=== PATIENT | female | born 1955 | race American Indian/Alaskan Native ===

== ENCOUNTER 2020-10-04 08:34 | Observation (INO) | payer MEDICARE ==
[2020-10-04] MEDS ORDERED: ASPIRIN EC 325 MG TAB PO ONE (09:16)
[2020-10-04] MEDS ORDERED: ASPIRIN 325 MG TAB ONE (09:23)
[2020-10-04 09:53] LABS: Hematocrit 35.3 % (30.3-42.9); Hemoglobin 11.3 gm/dl (10.1-14.3); Mean Corpuscular HGB Conc 32 % (30-34); Mean Corpuscular Volume 89 fl (79-97); Platelet Count 218 K/mm3 (140-440); Red Blood Count 3.96 M/mm3 (3.65-5.03); Red Cell Distribution Width 16.2 % (13.2-15.2)
[2020-10-04] MEDS ORDERED: SODIUM CHLORIDE 0.9% 500 ML 500 ML IV SCH (10:00)
[2020-10-04 10:03] LABS: Basophils % (Auto) 0.7 % (0.0-1.8); Eosinophils # (Auto) 0.3 K/mm3 (0.0-0.4); Eosinophils % (Auto) 5.7 % (0.0-4.3); Lymphocytes # (Auto) 1.8 K/mm3 (1.2-5.4); Lymphocytes % (Auto) 29.6 % (13.4-35.0); Monocytes # (Auto) 0.5 K/mm3 (0.0-0.8); Monocytes % (Auto) 8.9 % (0.0-7.3)
[2020-10-04 10:04] LABS: INR 1.01 (0.87-1.13)
[2020-10-04 10:08] LABS: Blood Urea Nitrogen 32 mg/dL (7-17); Calcium 9.1 mg/dL (8.4-10.2); Hemolysis Index 325
[2020-10-04 10:19] LABS: BUN/Creatinine Ratio 4
[2020-10-04] MEDS ORDERED: HEPARIN/NS 5000 UNIT/500ML 1,000 ML IR ONE (11:40)
[2020-10-04] MEDS ORDERED: LIDOCAINE (2%) 20 MG/1 ML VIAL 20 ML MDV INFILTRATI ONE (11:41)
[2020-10-04] MEDS ORDERED: MIDAZOLAM 2 MG/2 ML INJ ONE (11:41)
[2020-10-04] MEDS ORDERED: NITROGLYCERIN SYRINGE 3 ML ONE (11:41)
[2020-10-04] MEDS ORDERED: diphenhydrAMINE 50 MG/ML VIAL ONE (12:24)
[2020-10-04] MEDS ORDERED: HYDROCORTISONE SOD SUCC 100 MG/2 ML VIAL ONE (12:24)
[2020-10-04] MEDS: fentaNYL 100 MCG/2 ML INJ ONE ×2 (12:38→12:58)
[2020-10-04] MEDS: HEPARIN 10,000 UNITS/10 ML VIAL ONE ×2 (12:50→12:59)
[2020-10-04] MEDS ORDERED: MORPHINE 10 MG/1 ML INJ ONE (12:53)
[2020-10-04] MEDS ORDERED: CLOPIDOGREL 300 MG TAB ONE (13:10)
[2020-10-04] MEDS ORDERED: ALUM-MAG HYDROXIDE-SIMETHICONE 200-200-20MG/5ML ORAL LIQD 30 ML ONE (13:10)
--- NOTE | 2020-10-04 13:31 | Cardiac Catherization Report ---
CARDIAC CATHETERIZATION AND CORONARY ANGIOPLASTY REPORT REASON FOR PROCEDURE: The patient is a 65-year-old woman with end-stage renal disease, on hemodialysis, who is undergoing transplant evaluation. She was referred for cardiac catheterization for preoperative assessment. Previous cardiac catheterization most recently in 2013 demonstrated multivessel, nonobstructive disease at the time. PROCEDURES: 1. Left heart catheterization. 2. Selective left and right coronary angiography. 3. Left ventricular angiography. 4. Coronary angioplasty and stenting of the circumflex artery. 5. Sedation time, start 1238, end 1304. I was present for the entire procedure and supervised the moderate sedation protocol. DESCRIPTION OF PROCEDURE: The patient was prepped and draped in a sterile fashion after informed consent. The right femoral artery was entered using Seldinger technique followed by placement of a 6-Hebrew sheath. Selective left and right coronary angiography was performed using a #4 left Samm and a #4 right Samm. The right Samm was used for left ventricular angiography. The angiograms were reviewed. CORONARY ANGIOGRAPHY: The left main coronary artery was free of significant disease. There was heavy calcification of the left anterior descending artery in its proximal to mid segment. This was associated with mild diffuse atherosclerosis. Otherwise, no significant obstructive lesions were noted in the LAD or diagonal branches. The circumflex artery contained mild luminal irregularities in its proximal AV groove segment. After a large mid obtuse marginal branch, the circumflex then terminated in a medium sized, bifurcating terminal obtuse marginal. There was a long 90% stenosis of this terminal obtuse marginal. The right coronary artery was dominant. This vessel contained a long, 75-80% stenosis of its mid segment. Left ventricular systolic function was well preserved with ejection fraction estimated at 65%. CORONARY ANGIOPLASTY: After review of the angiograms, we proceeded with ad hoc coronary intervention to the circumflex vessel. We selected an XB 3.0 guiding catheter and advanced to the left coronary ostium. A 0.014 inch Cork Tipper 50 guidewire was then directed into the circumflex, across the lesional segment in the distal obtuse marginal. We then used a 2.5 mm balloon catheter and predilated the stenosis. Following this, a 2.5 x 15 mm drug-eluting stent was then deployed, and the stent inflated to optimal pressures. Following stenting, there was an excellent angiographic result, 0 residual stenosis and MARS 3 flow was maintained down the vessel. The catheters and the wires were removed, sheath removed, and hemostasis achieved using an Angio-Seal device. The patient was returned to the post-procedure unit in stable condition. There were no complications. CONCLUSION: 1. Multivessel coronary artery disease. 2. Severe disease of the distal circumflex and mid right coronary arteries. 3. Normal left ventricular systolic function, ejection fraction 65%. 4. Successful ad hoc angioplasty and stenting of the circumflex artery, with successful deployment of a 2.5 x 15 mm drug-eluting stent. The patient's right coronary artery lesion will be scheduled for staged, second vessel intervention. JOB# [id number] CA/NTS
[2020-10-04] MEDS ORDERED: HYDROcodone/ACETAMINOPHEN 5-325 MG TAB PO PRN (13:33)
[2020-10-04] MEDS ORDERED: ZOLPIDEM 5 MG TAB PO PRN (13:33)
--- NOTE | 2020-10-04 13:33 | Event Note ---
Date: 10/04/20 Outpatient cardiac catheterization completed via the right femoral approach, we found a 90% stenosis of the distal circumflex, and another, 80% stenosis of the mid right coronary artery. We performed successful ad hoc angioplasty and stenting of the circumflex with deployment of a 2.5 x 15 mm drug-eluting stent, excellent angiographic result. The patient will be observed overnight post intervention, anticipate discharge tomorrow after hemodialysis. We will start optimal guideline directed medical therapy including dual oral antiplatelet therapy.
[2020-10-04] MEDS ORDERED: ONDANSETRON 4 MG/2 ML INJ IV PRN (14:00)
[2020-10-04] MEDS ORDERED: ACETAMINOPHEN 325 MG TAB PO PRN (14:00)
[2020-10-04] MEDS: METOPROLOL TARTRATE 50 MG TAB PO SCH (16:40)
[2020-10-04] MEDS ORDERED: NON-FORMULARY EACH (Famotidine [Pepcid] 40 MG Tablet) PO SCH (22:00)
[2020-10-04] MEDS ORDERED: FAMOTIDINE 20 MG TAB PO SCH (22:17)
[2020-10-05] MEDS: METOPROLOL TARTRATE 50 MG TAB PO SCH ×2 (06:31→09:13)
[2020-10-05 06:36] LABS: Basophils % (Auto) 0.4 % (0.0-1.8); Eosinophils # (Auto) 0.1 K/mm3 (0.0-0.4); Eosinophils % (Auto) 1.9 % (0.0-4.3); Lymphocytes # (Auto) 1.7 K/mm3 (1.2-5.4); Lymphocytes % (Auto) 29.3 % (13.4-35.0); Mean Corpuscular HGB Conc 32 % (30-34); Mean Corpuscular Volume 88 fl (79-97); Monocytes # (Auto) 0.6 K/mm3 (0.0-0.8); Monocytes % (Auto) 9.8 % (0.0-7.3); Platelet Count 187 K/mm3 (140-440); Red Blood Count 3.51 M/mm3 (3.65-5.03); Red Cell Distribution Width 16.2 % (13.2-15.2)
[2020-10-05] MEDS: FAMOTIDINE 20 MG TAB PO SCH ×2 (07:05→09:12)
[2020-10-05 07:23] LABS: Calcium 8.3 mg/dL (8.4-10.2)
--- NOTE | 2020-10-05 08:18 | XRay Report ---
CHEST 1 VIEW 10/05/2020 6:47 AM INDICATION / CLINICAL INFORMATION: post pci. COMPARISON: May 14, 2008 FINDINGS: SUPPORT DEVICES: None. HEART / MEDIASTINUM: No significant abnormality. LUNGS / PLEURA: No significant pulmonary or pleural abnormality. No pneumothorax. ADDITIONAL FINDINGS: Degenerative change in bilateral shoulders IMPRESSION: 1. No acute findings. Signer Name: Karl Beaver MD Signed: 10/05/2020 8:13 AM Workstation Name: [id number]
[2020-10-05] MEDS ORDERED: SODIUM CHLORIDE 0.9% 100 ML IV PRN (09:14)
[2020-10-05] MEDS ORDERED: EPOETIN ALFA-EPBX 10,000 UNIT/1 ML VIAL IV PRN (09:14)
--- NOTE | 2020-10-05 09:14 | Consultation ---
History of Present Illness - Reason for Consult Consult date: 10/05/20 end stage renal disease - History of Present Illness Mrs. peralta is a 65yo with ESRD on HD MWF admitted following outpatient C. LHC notable for 90% stenosis of the distal circumflex., 80% stenosis of the mid right coronary artery. She is s/p successful PCI of the circumflex with deployment of a 2.5 x 15 mm drug-eluting stent Today, she has no complaints. She denies SOB, chest pain Past History Past Medical History: CAD, ESRD Past Surgical History: Other (CHAPARRO AVF creation; R arm AV access - failed) Social history: no significant social history Family history: no significant family history Medications and Allergies Allergies Allergy/AdvReac Type Severity Reaction Status Date / Time hydrocodone bitartrate Allergy Severe CLOSES UP Unverified 02/18/14 06:43 [From Vicodin] HER THROAT ferritin Allergy Seizure Uncoded 02/18/14 07:08 Home Medications Medication Instructions Recorded Confirmed Last Taken Type Acetaminophen [Acetaminophen TAB] 650 mg PO Q6HR PRN 02/18/14 10/04/20 10/03/20 History 650 mg Metoprolol [Lopressor TAB] 25 mg PO DAILY 02/18/14 10/04/20 10/03/20 History 25 mg Famotidine [Pepcid] 40 mg PO QHS 10/04/20 10/04/20 10/03/20 History 40 mg Active Meds: Active Medications Acetaminophen (Acetaminophen 325 Mg Tab) 650 mg PO Q4H PRN PRN Reason: Pain MILD(1-3)/Fever >100.5/GLASGOW Aspirin (Aspirin Ec 325 Mg Tab) [address] [facility] Last Admin: 10/05/20 09:12 Dose: 325 mg Documented by: Atorvastatin Calcium (Atorvastatin 40 Mg Tab) [address] [facility] Last Admin: 10/05/20 06:31 Dose: Not Given Documented by: Clopidogrel Bisulfate (Clopidogrel 75 Mg Tab) [address] [facility] Last Admin: 10/05/20 09:12 Dose: 75 mg Documented by: Famotidine (Famotidine 20 Mg Tab) [address] [facility] Last Admin: 10/05/20 09:12 Dose: 20 mg Documented by: Isosorbide Mononitrate (Isosorbide Mononitrate Er 30 Mg Tab) [address] [facility] Last Admin: 10/05/20 09:13 Dose: Not Given Documented by: Metoprolol Tartrate (Metoprolol Tartrate 50 Mg Tab) [address] [facility] Last Admin: 10/05/20 09:13 Dose: Not Given Documented by: Ondansetron HCl (Ondansetron 4 Mg/2 Ml Inj) 4 mg IV Q8H PRN PRN Reason: Nausea And Vomiting Zolpidem Tartrate (Zolpidem 5 Mg Tab) 5 mg PO QHS PRN PRN Reason: Sleep Review of Systems All systems: negative Exam - Vital Signs Vital signs: Vital Signs Temp Pulse Resp BP Pulse Ox 98.1 F 74 20 99/46 100 10/04/20 10:14 10/04/20 10:14 10/04/20 10:14 10/04/20 10:14 10/04/20 10:14 - General Appearance General appearance: well-developed, well-nourished EENT: ATNC Respiratory: Clear to Ascultation Heart: regular, S1S2 Gastrointestinal: Present: normal. Absent: tenderness, distended Integumentary: no rash, warm and dry Musculoskeletal: Present: other (no edema) Psychiatric: cooperative Results - Lab Results 10/05/20 06:20 10/05/20 06:20 Most recent lab results Calcium 8.3 mg/dL (8.4-10.2) L 10/05/20 06:20 Assessment and Plan Impression: * End stage renal disease on HD * CAD s/p LHC w/ PCI of distal circumflex --LHC (Oct 04 2020): 90% stenosis of the distal circumflex, 80% stenosis of the mid right coronary artery * Anemia secondary to ESRD * Secondary hyperparathyroidism Plan: * Hemodialysis today - UF as tolerated * Continue MWF * Cardiology recommendations reviewed * Epogen 5000 today * Renal/dialysis diet * Dose medications for renal function
[2020-10-05] MEDS ORDERED: CLOPIDOGREL 75 MG TAB PO SCH (10:00)
[2020-10-05] MEDS ORDERED: FAMOTIDINE 20 MG TAB PO SCH (10:00)
[2020-10-05] MEDS ORDERED: ASPIRIN EC 325 MG TAB PO SCH (10:00)
--- NOTE | 2020-10-05 10:20 | Short Stay Summary ---
Short Stay Documentation Date of service: 10/05/20 - History H&P: obtained from office Past Medical History: CAD, ESRD Past Surgical History: Other (CHAPARRO AVF creation; R arm AV access - failed) Social history: no significant social history - Allergies and Medications Current Medications: Allergies hydrocodone bitartrate [From Vicodin] Allergy (Severe, Unverified 02/18/14 06:43) CLOSES UP HER THROAT ferritin Allergy (Uncoded 02/18/14 07:08) Seizure Home Medications Medication Instructions Recorded Confirmed Last Taken Type Acetaminophen [Acetaminophen TAB] 650 mg PO Q6HR PRN 02/18/14 10/04/20 10/03/20 History 650 mg Metoprolol [Lopressor TAB] 25 mg PO DAILY 02/18/14 10/04/20 10/03/20 History 25 mg Famotidine [Pepcid] 40 mg PO QHS 10/04/20 10/04/20 10/03/20 History 40 mg Active Medications Acetaminophen (Acetaminophen 325 Mg Tab) 650 mg PO Q4H PRN PRN Reason: Pain MILD(1-3)/Fever >100.5/GLASGOW Aspirin (Aspirin Ec 325 Mg Tab) 325 mg PO QDAY [facility] Last Admin: 10/05/20 09:12 Dose: 325 mg Documented by: Atorvastatin Calcium (Atorvastatin 40 Mg Tab) 40 mg PO QHS [facility] Last Admin: 10/05/20 06:31 Dose: Not Given Documented by: Clopidogrel Bisulfate (Clopidogrel 75 Mg Tab) 75 mg PO QDAY [facility] Last Admin: 10/05/20 09:12 Dose: 75 mg Documented by: Famotidine (Famotidine 20 Mg Tab) 20 mg PO QDAY [facility] Last Admin: 10/05/20 09:12 Dose: 20 mg Documented by: Sodium Chloride (Nacl 0.9%) 100 mls @ 999 mls/hr IV TEE PRN PRN Reason: Hypotension Isosorbide Mononitrate (Isosorbide Mononitrate Er 30 Mg Tab) 30 mg PO QDAY [facility] Last Admin: 10/05/20 09:13 Dose: Not Given Documented by: Metoprolol Tartrate (Metoprolol Tartrate 50 Mg Tab) 50 mg PO BID [facility] Last Admin: 10/05/20 09:13 Dose: Not Given Documented by: Ondansetron HCl (Ondansetron 4 Mg/2 Ml Inj) 4 mg IV Q8H PRN PRN Reason: Nausea And Vomiting Zolpidem Tartrate (Zolpidem 5 Mg Tab) 5 mg PO QHS PRN PRN Reason: Sleep - Physical exam HEENT: PERRLA Lungs: Clear to auscultation Heart: Regular rate, Normal S1, Normal S2 - Brief post op/procedure progress note Procedure: Outpatient cardiac catheterization completed via the right femoral approach, we found a 90% stenosis of the distal circumflex, and another, 80% stenosis of the mid right coronary artery. We performed successful ad hoc angioplasty and stenting of the circumflex with deployment of a 2.5 x 15 mm drug-eluting stent, excellent angiographic result. - Hospital course Hospital course: Stable overnight observation. Patient will discharge tomorrow after hemodialysis. We will start optimal guideline directed medical therapy for coronary artery disease including dual oral antiplatelet therapy. - Disposition Condition at discharge: Good Disposition: DC-01 TO HOME OR SELFCARE Short Stay Discharge Plan Activity: advance as tolerated Weight Bearing Status: Partial Weight Bearing Diet: low fat, low cholesterol Wound: open to air, keep clean and dry Follow up with: NIGHAT ZEE MD [Primary Care Provider] - 7 Days Prescriptions: AtorvaSTATin [Lipitor] 40 mg PO QHS #30 tablet Aspirin EC [Ecotrin] 325 mg PO QDAY #30 tablet ISOSORBIDE MONOnitrate [Imdur ER] 30 mg PO QDAY #30 tablet Metoprolol Xl [Metoprolol SUCCINATE ER TAB] 50 mg PO QDAY #30 tablet Clopidogrel [Plavix] 75 mg PO QDAY #30 tablet
[2020-10-05 13:51] LABS: Hepatitis B Surface Antigen Non-Reactive (Negative); Hepatitis C Virus Antibody Non-Reactive (NonReactive)
[2020-10-05 17:27] VITALS: BP 110/52
--- NOTE | 2020-10-06 11:10 | Electrocardiograph Report ---
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
--- NOTE | 2020-10-06 11:11 | Electrocardiograph Report ---
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 Electronically Signed On 10-06-2020 8:11:17 PDT by Niraj Delgado
--- NOTE | 2020-10-06 11:16 | Electrocardiograph Report ---
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
== END 2020-10-05 17:35 | disposition home or self-care (01) ==
LOC: CATH 08:34 → 4A 13:33
PROVIDERS: ADMIT Internal Medicine Cardiovascular Disease; ATTEND Internal Medicine Cardiovascular Disease
DX: I25.10 Atherosclerotic heart disease of native coronary artery without angina pectoris (principal); I12.0 Hypertensive chronic kidney disease with stage 5 chronic kidney disease or end stage renal disease; N18.6 End stage renal disease; D63.1 Anemia in chronic kidney disease; N25.81 Secondary hyperparathyroidism of renal origin; Z98.61 Coronary angioplasty status; Z99.2 Dependence on renal dialysis; Z98.890 Other specified postprocedural states; Z79.82 Long term (current) use of aspirin; Z79.899 Other long term (current) drug therapy
CPT/HCPCS: 36415; 71045; 80048; 80074; 84484; 85025; 85610; 85730; 93005; 93458; C1725; C1760; C1769; C1874; C1887; C1894; C9600; G0257; G0378; J1200; J1644; J1720; J2250; J2270; J3010; J7040; 92928; Q9967

== ENCOUNTER 2020-10-25 08:57 | Observation (INO) | payer MEDICARE ==
[2020-10-18 08:44] LABS: Hematocrit 36.5 % (30.3-42.9); Hemoglobin 11.5 gm/dl (10.1-14.3); Mean Corpuscular HGB Conc 32 % (30-34); Mean Corpuscular Volume 90 fl (79-97); Platelet Count 243 K/mm3 (140-440); Red Blood Count 4.07 M/mm3 (3.65-5.03); Red Cell Distribution Width 16.5 % (13.2-15.2)
[2020-10-18 08:45] LABS: Basophils % (Auto) 0.6 % (0.0-1.8); Eosinophils # (Auto) 0.2 K/mm3 (0.0-0.4); Lymphocytes # (Auto) 1.5 K/mm3 (1.2-5.4); Lymphocytes % (Auto) 27.5 % (13.4-35.0); Monocytes # (Auto) 0.6 K/mm3 (0.0-0.8); Monocytes % (Auto) 10.2 % (0.0-7.3)
[2020-10-18 08:51] LABS: INR 1.02 (0.87-1.13)
[2020-10-18 08:52] LABS: Calcium 9.5 mg/dL (8.4-10.2)
--- NOTE | 2020-10-18 09:04 | Event Note ---
Date: 10/18/20 65-year-old woman who has two-vessel disease, underwent coronary stenting of the circumflex with drug-eluting stents 2 weeks ago. She presents today for outpatient, staged second vessel intervention to the right coronary artery. The patient admits that on getting home after her index intervention 2 weeks ago, she did not fill her Plavix prescription and has not taking Plavix until the current time. This was despite multiple detailed instructions to her and her , a documented list of post intervention medications that included DAPT, and a prescription for Plavix. She states that she understood the importance of Plavix, but for unclear reasons did not take her prescription to be filled at the pharmacy. Fortunately, she has had no chest pain, no shortness of breath, and currently looks and feels well. I have once again gone over the details regarding the importance of uninterrupted dual oral antiplatelet therapy including Plavix, to the patient and the , in the presence of the nursing staff. At this time, I told her it would not be to her benefit to continue implanting additional stents if she is unwilling or unable to comply with dual oral antiplatelet therapy. She states that she will begin her Plavix today, and intends to maintain compliance going forward. We will cancel the elective procedure today and reschedule for next week on the assumption that she will be compliant with Plavix therapy. We will administer 300 mg loading dose of Plavix today and she is instructed to follow with 75 mg daily starting tomorrow, in addition to aspirin at 81 to 325 mg daily.
[~2020-10-25 08:57] MED LIST: ASPIRIN EC 325 MG TAB PO ONE; CLOPIDOGREL 300 MG TAB PO ONE; CLOPIDOGREL 75 MG TAB PO ONE; CLOPIDOGREL 75 MG TAB PO SCH; HYDROCORTISONE SOD SUCC 100 MG/2 ML VIAL IV ONE; SODIUM CHLORIDE 0.9% 500 ML 500 ML IV SCH; diphenhydrAMINE 50 MG/ML VIAL IV ONE
[2020-10-25] MEDS ORDERED: SODIUM CHLORIDE 0.9% 500 ML 500 ML IV SCH (10:00)
[2020-10-25 11:56] LABS: Basophils % (Auto) 0.7 % (0.0-1.8); Eosinophils # (Auto) 0.3 K/mm3 (0.0-0.4); Eosinophils % (Auto) 5.3 % (0.0-4.3); Hematocrit 34.7 % (30.3-42.9); Hemoglobin 11.3 gm/dl (10.1-14.3); Lymphocytes # (Auto) 1.4 K/mm3 (1.2-5.4); Lymphocytes % (Auto) 28.7 % (13.4-35.0); Mean Corpuscular HGB Conc 33 % (30-34); Mean Corpuscular Volume 89 fl (79-97); Monocytes # (Auto) 0.5 K/mm3 (0.0-0.8); Monocytes % (Auto) 10.5 % (0.0-7.3); Platelet Count 233 K/mm3 (140-440); Red Cell Distribution Width 16.2 % (13.2-15.2)
[2020-10-25 12:01] LABS: INR 1.09 (0.87-1.13)
[2020-10-25 12:46] LABS: Calcium 9.5 mg/dL (8.4-10.2)
[2020-10-25] MEDS ORDERED: diphenhydrAMINE 50 MG/ML VIAL IV ONE (14:29)
[2020-10-25] MEDS ORDERED: HYDROCORTISONE SOD SUCC 100 MG/2 ML VIAL IV ONE (14:29)
[2020-10-25] MEDS ORDERED: HEPARIN/NS 5000 UNIT/500ML 1,000 ML IR ONE (17:39)
[2020-10-25] MEDS ORDERED: LIDOCAINE (2%) 20 MG/1 ML VIAL 20 ML MDV INFILTRATI ONE (17:39)
[2020-10-25] MEDS ORDERED: fentaNYL 100 MCG/2 ML INJ ONE (17:39)
[2020-10-25] MEDS ORDERED: VERAPAMIL 5 MG/2 ML INJ ONE (17:39)
[2020-10-25] MEDS ORDERED: MIDAZOLAM 2 MG/2 ML INJ ONE (17:39)
[2020-10-25] MEDS ORDERED: NITROGLYCERIN SYRINGE 3 ML ONE (17:40)
[2020-10-25] MEDS ORDERED: SODIUM CHLORIDE 0.9% 500 ML 500 ML ONE (17:59)
[2020-10-25] MEDS: HEPARIN 10,000 UNITS/10 ML VIAL ONE ×2 (18:20→18:25)
[2020-10-25] MEDS ORDERED: ZOLPIDEM 5 MG TAB PO PRN (18:52)
[2020-10-25] MEDS ORDERED: ONDANSETRON 4 MG/2 ML INJ IV PRN (18:52)
[2020-10-25] MEDS ORDERED: ACETAMINOPHEN 325 MG TAB PO PRN (18:52)
--- NOTE | 2020-10-25 18:57 | Event Note ---
Date: 10/25/20 Patient underwent successful second vessel angioplasty and stenting of the mid right coronary artery, excellent angiographic result following implantation of 2 serial 3.0 mm drug-eluting stents. No complications, admit for 23-hour post PCI observation, and consult nephrology for routine hemodialysis tomorrow. Anticipate discharge on optimal guideline directed medical therapy after hemodialysis tomorrow.
[2020-10-25] MEDS ORDERED: CLOPIDOGREL 75 MG TAB ONE ×2 (18:58→19:00)
[2020-10-25] MEDS ORDERED: NON-FORMULARY EACH (Famotidine [Pepcid] 40 MG Tablet) PO SCH (22:00)
[2020-10-25] MEDS ORDERED: FAMOTIDINE 10 MG TAB PO SCH (22:00)
[2020-10-25] MEDS: METOPROLOL SUCCINATE XL 50 MG TAB PO SCH (22:55)
--- NOTE | 2020-10-26 01:37 | Cardiac Catherization Report ---
CORONARY ANGIOPLASTY REPORT REASON FOR PROCEDURE: The patient is a 65-year-old woman with severe 2-vessel coronary artery disease. Two weeks ago, she underwent coronary intervention to the circumflex, returns today for staged, second vessel intervention to the mid right coronary artery. The right coronary artery in its mid segment contains a long calcified 80% stenosis. PROCEDURES: 1. Coronary angioplasty and stenting of the mid right coronary artery. 2. Sedation time, start 1816 hours, end 1836 hours. The patient was prepped and draped in a sterile fashion after informed consent. I was present for the entire procedure and supervised the moderate sedation protocol. The right femoral artery was entered using Seldinger technique followed by placement of a 6-Lebanese sheath. We selected a hockey stick guiding catheter and advanced to the right coronary ostium. Pre-intervention angiograms were done. A 0.014 inch [employer] Leader 50 guidewire was then introduced into the right coronary artery across the lesional segment. Following wire placement, we performed pre-dilatation balloon angioplasty using a 2.5 x 15 mm balloon catheter. We then deployed serial, 3.0 mm drug-eluting stents, covering the entire lesional segment of the mid right coronary artery. Following stenting, there was an excellent angiographic result, 0 residual stenosis and MARS 3 flow maintained down the vessel. The wires and the catheters were removed, sheath removed, and hemostasis achieved using an Angio-Seal device. The patient was returned to the post-procedure unit in stable condition. There were no complications. CONCLUSION: Successful second vessel angioplasty and stenting of the mid right coronary artery. A greater than 80% stenosis was treated successfully using serial, 3.5 mm drug-eluting stents with excellent angiographic result. [facility]# [id number] CA/NTS
[2020-10-26 06:54] LABS: Basophils % (Auto) 0.7 % (0.0-1.8); Eosinophils % (Auto) 0.5 % (0.0-4.3); Hematocrit 33.3 % (30.3-42.9); Hemoglobin 10.7 gm/dl (10.1-14.3); Lymphocytes % (Auto) 22.2 % (13.4-35.0); Mean Corpuscular HGB Conc 32 % (30-34); Mean Corpuscular Volume 89 fl (79-97); Monocytes # (Auto) 0.3 K/mm3 (0.0-0.8); Monocytes % (Auto) 6.1 % (0.0-7.3); Platelet Count 245 K/mm3 (140-440); Red Blood Count 3.72 M/mm3 (3.65-5.03); Red Cell Distribution Width 16.3 % (13.2-15.2)
[2020-10-26 07:18] LABS: Calcium 8.6 mg/dL (8.4-10.2)
--- NOTE | 2020-10-26 08:26 | XRay Report ---
CHEST 1 VIEW INDICATION: post pci. COMPARISON: 10/05/2020 FINDINGS: Support devices: None. Heart: Within normal limits. Lungs/Pleura: No acute air space or interstitial disease. No pneumothorax. Additional findings: None. IMPRESSION: No acute findings. Signer Name: Fahad Snyder Jr, MD Signed: 10/26/2020 8:21 AM Workstation Name: [id number]
[2020-10-26] MEDS ORDERED: ASPIRIN EC 325 MG TAB PO SCH (10:00)
[2020-10-26] MEDS ORDERED: CLOPIDOGREL 75 MG TAB PO SCH (10:00)
--- NOTE | 2020-10-26 10:31 | Short Stay Summary ---
Short Stay Documentation Date of service: 10/26/20 - History H&P: obtained from office - Allergies and Medications Current Medications: Allergies hydrocodone bitartrate [From Vicodin] Allergy (Severe, Verified 10/25/20 20:39) CLOSES UP HER THROAT ferritin Allergy (Uncoded 02/18/14 07:08) Seizure IV Contrast Allergy (Uncoded 10/25/20 20:39) Rash Home Medications Medication Instructions Recorded Confirmed Last Taken Type Famotidine [Pepcid] 40 mg PO QHS 10/04/20 10/25/20 10/24/20 History Aspirin EC [Ecotrin] 325 mg PO QDAY #30 tablet 10/05/20 10/25/20 10/25/20 Rx AtorvaSTATin [Lipitor] 40 mg PO QHS #30 tablet 10/05/20 10/25/20 10/24/20 Rx Clopidogrel [Plavix] 75 mg PO QDAY #30 tablet 10/05/20 10/25/20 10/25/20 Rx 75 mg ISOSORBIDE MONOnitrate [Imdur ER] 30 mg PO QDAY #30 tablet 10/05/20 10/25/20 10/24/20 Rx Metoprolol Xl [Metoprolol 50 mg PO QDAY #30 tablet 10/05/20 10/25/20 10/24/20 Rx SUCCINATE ER TAB] 1 tab Calcium Carbonate [Oscal 1250MG 1,250 mg PO DAILY 10/25/20 10/25/20 10/24/20 History TAB] Active Medications Acetaminophen (Acetaminophen 325 Mg Tab) 650 mg PO Q4H PRN PRN Reason: Pain MILD(1-3)/Fever >100.5/GLASGOW Last Admin: 10/25/20 20:52 Dose: 650 mg Documented by: Aspirin (Aspirin Ec 325 Mg Tab) 325 mg PO QDAY [facility] Atorvastatin Calcium (Atorvastatin 40 Mg Tab) 40 mg PO QHS [facility] Last Admin: 10/25/20 22:55 Dose: 40 mg Documented by: Clopidogrel Bisulfate (Clopidogrel 75 Mg Tab) 75 mg PO QDAY [facility] Famotidine (Famotidine 10 Mg Tab) 10 mg PO QHS [facility] Last Admin: 10/25/20 22:55 Dose: 10 mg Documented by: Isosorbide Mononitrate (Isosorbide Mononitrate Er 30 Mg Tab) 30 mg PO QDAY [facility] Last Admin: 10/25/20 22:55 Dose: Not Given Documented by: Metoprolol Succinate (Metoprolol Succinate Xl 50 Mg Tab) 50 mg PO QDAY [facility] Last Admin: 10/25/20 22:55 Dose: Not Given Documented by: Ondansetron HCl (Ondansetron 4 Mg/2 Ml Inj) 4 mg IV Q8H PRN PRN Reason: N/V unrelieved by Reglan Zolpidem Tartrate (Zolpidem 5 Mg Tab) 5 mg PO QHS PRN PRN Reason: Sleep - Physical exam General appearance: no acute distress HEENT: PERRLA Lungs: Clear to auscultation Heart: Regular rate, No murmurs - Brief post op/procedure progress note Procedure: Patient underwent successful second vessel angioplasty and stenting of the mid right coronary artery, excellent angiographic result following implantation of 2 serial 3.0 mm drug-eluting stents. Condition: stable - Hospital course Hospital course: No complications overnight. Discharge on optimal guideline directed medical therapy after hemodialysis. - Disposition Condition at discharge: Good Disposition: DC-01 TO HOME OR SELFCARE Short Stay Discharge Plan Activity: advance as tolerated Weight Bearing Status: Full Weight Bearing Diet: low fat, low cholesterol, low salt Wound: open to air, keep clean and dry Follow up with: NIGHAT ZEE MD [Primary Care Provider] - 7 Days ANN NOLASCO MD [Staff Physician] - 7 Days
[2020-10-26] MEDS: METOPROLOL SUCCINATE XL 50 MG TAB PO SCH (10:47)
[2020-10-26] MEDS ORDERED: SODIUM CHLORIDE 0.9% 100 ML IV PRN (13:00)
--- NOTE | 2020-10-26 17:19 | History and Physical Report ---
History of Present Illness Date of examination: 10/26/20 Date of admission: 10/25/20 18:52 Chief complaint: Coronary artery disease History of present illness: This is a 65-year-old woman with end-stage renal disease on hemodialysis and coronary artery disease who was admitted following a left heart cath for angioplasty and stenting of the circumflex. Patient tolerated the procedure without any complications. Nephrology was consulted for ESRD management. She d enies chest pain, syncope and diaphoresis. Medications and Allergies Allergies Allergy/AdvReac Type Severity Reaction Status Date / Time hydrocodone bitartrate Allergy Severe CLOSES UP Verified 10/25/20 20:39 [From Vicodin] HER THROAT ferritin Allergy Seizure Uncoded 02/18/14 07:08 IV Contrast Allergy Rash Uncoded 10/25/20 20:39 Home Medications Medication Instructions Recorded Confirmed Last Taken Type Famotidine [Pepcid] 40 mg PO QHS 10/04/20 10/25/20 10/24/20 History Aspirin EC [Ecotrin] 325 mg PO QDAY #30 tablet 10/05/20 10/25/20 10/25/20 Rx AtorvaSTATin [Lipitor] 40 mg PO QHS #30 tablet 10/05/20 10/25/20 10/24/20 Rx Clopidogrel [Plavix] 75 mg PO QDAY #30 tablet 10/05/20 10/25/20 10/25/20 Rx 75 mg ISOSORBIDE MONOnitrate [Imdur ER] 30 mg PO QDAY #30 tablet 10/05/20 10/25/20 10/24/20 Rx Metoprolol Xl [Metoprolol 50 mg PO QDAY #30 tablet 10/05/20 10/25/20 10/24/20 Rx SUCCINATE ER TAB] 1 tab Calcium Carbonate [Oscal 1250MG 1,250 mg PO DAILY 10/25/20 10/25/20 10/24/20 History TAB] Active Meds: Active Medications Acetaminophen (Acetaminophen 325 Mg Tab) 650 mg PO Q4H PRN PRN Reason: Pain MILD(1-3)/Fever >100.5/GLASGOW Last Admin: 10/25/20 20:52 Dose: 650 mg Documented by: Aspirin (Aspirin Ec 325 Mg Tab) 325 mg PO QDAY BIGG Last Admin: 10/26/20 10:46 Dose: Not Given Documented by: Atorvastatin Calcium (Atorvastatin 40 Mg Tab) 40 mg PO QHS [facility] Last Admin: 10/25/20 22:55 Dose: 40 mg Documented by: Clopidogrel Bisulfate (Clopidogrel 75 Mg Tab) 75 mg PO QDAY [facility] Last Admin: 10/26/20 10:47 Dose: Not Given Documented by: Famotidine (Famotidine 10 Mg Tab) 10 mg PO QHS [facility] Last Admin: 10/25/20 22:55 Dose: 10 mg Documented by: Sodium Chloride (Nacl 0.9%) 100 mls @ 999 mls/hr IV TEE PRN PRN Reason: Hypotension Isosorbide Mononitrate (Isosorbide Mononitrate Er 30 Mg Tab) 30 mg PO QDAY [facility] Last Admin: 10/26/20 10:46 Dose: Not Given Documented by: Metoprolol Succinate (Metoprolol Succinate Xl 50 Mg Tab) 50 mg PO QDAY [facility] Last Admin: 10/26/20 10:47 Dose: Not Given Documented by: Ondansetron HCl (Ondansetron 4 Mg/2 Ml Inj) 4 mg IV Q8H PRN PRN Reason: N/V unrelieved by Jordy Zolpidem Tartrate (Zolpidem 5 Mg Tab) 5 mg PO QHS PRN PRN Reason: Sleep Review of Systems Constitutional: no fever, no chills Ears, nose, mouth and throat: no nasal congestion, no nasal discharge Cardiovascular: no chest pain, no orthopnea Respiratory: no shortness of breath, no dyspnea on exertion Gastrointestinal: no nausea, no vomiting Musculoskeletal: no muscle cramps Integumentary: no rash, no redness Neurological: no paralysis, no weakness Psychiatric: no anxiety, no paranoia Endocrine: no cold intolerance, no heat intolerance Hematologic/Lymphatic: no easy bruising Allergic/Immunologic: no wheezing Exam - Vital Signs Vital signs: Vital Signs Temp Pulse Resp BP Pulse Ox 98.3 F 72 20 90/41 100 10/18/20 08:38 10/18/20 08:38 10/18/20 08:38 10/18/20 08:38 10/18/20 08:38 - Physical Exam Narrative exam: General: No acute distress HEENT: Oral mucosa moist Neck: Supple, no JVD Chest: Clear to auscultation bilaterally Heart: RRR, S1 and S2, no pericardial rub Abdomen: Soft, nontender, no renal bruit Extremity: No peripheral cyanosis, edema Neurological: Alert, awake, no asterixis Dermatology: No skin rash Psych: No agitation Musculoskeletal: No joint effusion Results - Lab Results 10/26/20 05:17 10/26/20 05:17 Most recent lab results Calcium 8.6 mg/dL (8.4-10.2) 10/26/20 05:17 Assessment and Plan Assessment - End-stage renal disease on hemodialysis - Hypertension, today with soft systolics - Anemia of ESRD - Hyperparathyroidism - Hyperphosphatemia Recommendations - Plan for HD today, no UF - Hold antihypertensives today as bp is soft (asymptomatic - bp recheck read within acceptable range) - Keep MAP>65 - ESRD diet with 1.4 g/kg per day protein - Renally dose medication for creatinine clearance less than 15 cc/min
[2020-10-26 20:57] VITALS: BP 76/43
--- NOTE | 2020-10-27 11:29 | Electrocardiograph Report ---
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
--- NOTE | 2020-10-27 11:39 | Electrocardiograph Report ---
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
== END 2020-10-26 21:12 | disposition home or self-care (01) ==
LOC: CATHLABREC 08:57 → 4A 18:52
PROVIDERS: ADMIT Internal Medicine Cardiovascular Disease; ATTEND Internal Medicine Cardiovascular Disease
DX: I25.119 Atherosclerotic heart disease of native coronary artery with unspecified angina pectoris (principal); I12.0 Hypertensive chronic kidney disease with stage 5 chronic kidney disease or end stage renal disease; N18.6 End stage renal disease; K21.9 Gastro-esophageal reflux disease without esophagitis; M19.90 Unspecified osteoarthritis, unspecified site; E21.3 Hyperparathyroidism, unspecified; D64.9 Anemia, unspecified; Z94.0 Kidney transplant status; R94.31 Abnormal electrocardiogram [ECG] [EKG]; Z79.899 Other long term (current) drug therapy; Z88.8 Allergy status to other drugs, medicaments and biological substances; Z90.49 Acquired absence of other specified parts of digestive tract; Z98.890 Other specified postprocedural states; Z53.8 Procedure and treatment not carried out for other reasons; Z79.82 Long term (current) use of aspirin; Z99.2 Dependence on renal dialysis
CPT/HCPCS: 36415; 71045; 80048; 84484; 85025; 85610; 85730; 93005; A9270; C1725; C1760; C1769; C1874; C1887; C1894; C9600; G0378; J1200; J1644; J1720; J2250; J3010; J7040; 92928; Q9967